=== PATIENT | female | born 1945 | race Caucasian/White ===

== ENCOUNTER 2017-04-12 00:13 | Observation (INO) ==
[2017-04-12] MEDS ORDERED: SALINE FLUSH 10ml SYRINGE IVF PRN (00:31)
--- OUTSIDE RECORDS SUMMARY | 2017-04-12 00:33 | External Medical Summary | Referral Summary ---
:1945 Author Organization [facility] Address [address] [place] [address] [place] [address] Care Team Providers Name Role Phone Jovanna Amaral Primary Care Physician Encounter [facility] Date(s): 09/29/15 - 09/29/15 [facility] [address] [place] [address] [place] [phone] [place] Discharge Diagnosis: Breast cancer Discharge Disposition: 01-Home or Self Care Attending Physician: Magdiel Neal MD Admitting Physician: Magdiel Neal MD Referring Physician: Jovanna Amaral MD Vital Signs Most recent to oldest [Reference Range]: 1 Temperature Tympanic [36.6-38.1 degC] 37.4 degC (09/29/15 4:40 PM) Blood Pressure [90-140/60-90 mmHg] 126/78 mmHg (09/29/15 4:40 PM) Problem List No data available for this section Allergies, Adverse Reactions, Alerts No Known Medication Allergies Medications Calcium 600+D oral tablet 1 tabs, Oral, BID, 0 Refill(s) Start Date: 09/29/15 Status: Ordered Results No data available for this section Immunizations No data available for this section Procedures Procedure Date Related Diagnosis Body Site Core needle biopsy of breast1 09/25/15 Hip replacement planned2 11/06/13 Colonoscopy 2004 1ultrasound guided, breast [id number] hip replacement Social History Social History Type Response Smoking Status Never smoker Assessment and Plan Extracted from: Title: Ambulatory Patient Education Author: Magdiel Neal MD Date: Family Medicine Breast Biopsy A breast biopsy is a procedure where a sample of breast tissue is removed from your breast. The tissue is examined under a microscope to see if cancerous cells are present. A breast biopsy is done when there is: Any undiagnosed breast mass (tumor). Nipple abnormalities, dimpling, crusting, or ulcerations. Abnormal discharge from the nipple, especially blood. Redness, swelling, and pain of the breast. Calcium deposits (calcifications) or abnormalities seen on a mammogram, ultrasound result, or results of magnetic resonance imaging (MRI). Suspicious changes in the breast seen on your mammogram. If the tumor is found to be cancerous (malignant), a breast biopsy can help to determine what the best treatment is for you. There are many different types of breast biopsies. Talk to your caregiver about your options and which type is best for you. LET YOUR CAREGIVER KNOW ABOUT: Allergies to food or medicine. Medicines taken, including vitamins, herbs, eyedrops, asjt-rpa-aspjddu medicines, and creams. Use of steroids (by mouth or creams). Previous problems with anesthetics or numbing medicines. History of bleeding problems or blood clots. Previous surgery. Other health problems, including diabetes and kidney problems. Any recent colds or infections. Possibility of , if this applies. RISKS AND COMPLICATIONS Bleeding. Infection. Allergy to medicines. Bruising and swelling of the breast. Alteration in the shape of the breast. Not finding the lump or abnormality. Needing more surgery. BEFORE THE PROCEDURE Arrange for someone to drive you home after the procedure. Do not smoke for 2 weeks before the procedure. Stop smoking, if you smoke. Do not drink alcohol for 24 hours before procedure. Wear a good support bra to the procedure. PROCEDURE You may be given a medicine to numb the breast area (local anesthesia) or a medicine to make you sleep (general anesthesia) during the procedure. The following are the different types of biopsies that can be performed. Fine-needle aspirationA thin needle is attached to a syringe and inserted into the breast lump. Fluid and cells are removed and then looked at under a microscope. If the breast lump cannot be felt, an ultrasound may be used to help locate the lump and place the needle in the correct area. Core needle biopsyA wide, hollow needle (core needle) is inserted into the breast lump 36 times to get tissue samples or cores. The samples are removed. The needle is usually placed in the correct area by using an ultrasound or X-ray. Stereotactic biopsyX-ray equipment and a computer are used to analyze X-ray pictures of the breast lump. The computer then finds exactly where the core needle needs to be inserted. Tissue samples are removed. Vacuum-assisted biopsyA small incision (less than inch) is made in your breast. A biopsy device that includes a hollow needle and vacuum is passed through the incision and into the breast t issue. The vacuum gently draws abnormal breast tissue into the needle to remove it. This type of biopsy removes a larger tissue sample than a regular core needle biopsy. No stitches are needed, and there is usually little scarring. Ultrasound-guided core needle biopsyA high frequency ultrasound helps guide the core needle to the area of the mass or abnormality. An incision is made to insert the needle. Tissue samples are removed. Open biopsyA larger incision is made in the breast. Your caregiver will attempt to remove the whole breast lump or as much as possible. AFTER THE PROCEDURE You will be taken to the recovery area. If you are doing well and have no problems, you will be allowed to go home. You may notice bruising on your breast. This is normal. Your caregiver may apply a pressure dressing on your breast for 2448 hours. A pressure dressing is a bandage that is wrapped tightly around the chest to stop fluid from collecting underneath tissues. This information is not intended to replace advice given to you by your health care provider. Make sure you discuss any questions you have with your health care provider. Document Released: 07/24/2006 Document Revised: 11/18/2013 Document Reviewed: 08/23/2012 [facility] Patient Information 2015 [employer]. Procedures Lumpectomy A lumpectomy is a form of "breast conserving" or "breast preservation" surgery. It may also be referred to as a partial mastectomy. During a lumpectomy , the portion of the breast that contains the cance jeannie tumor or breast mass (the lump) is removed. Some normal tissue around the lump may also be removed to make sure all of the tumor has been removed. LET YOUR HEALTH CARE PROVIDER KNOW ABOUT: Any allergies you have. All medicines you are taking, including vitamins, herbs, eye drops, creams, and yxco-ndw-rsxsuhz medicines. Previous problems you or members of your family have had with the use of anesthetics. Any blood disorders you have. Previous surgeries you have had. Medical conditions you have. RISKS AND COMPLICATIONS Generally, this is a safe procedure. However, problems can occur and include: Bleeding. Infection. Pain. Temporary swelling. Change in the shape of the breast, particularly if a large portion is removed. BEFORE THE PROCEDURE Ask your health care provider about changing or stopping your regular medicines. This is especially important if you are taking diabetes medicines or blood thinners. Do not eat or drink anything after midnight on the night before the procedure or as directed by your health care provider. Ask your health care provider if you can take a sip of water with any approved medicines. On the day of surgery, your health care provider will use a mammogram or ultrasound to locate and lanie the tumor in your breast. These markings on your breast will show where the cut (incision) will be made. PROCEDURE An IV tube will be put into one of your veins. You may be given medicine to help you relax before the surgery (sedative ). You will be given one of the following: A medicine that numbs the area (local anesthetic). A medicine that makes you fall asleep (general anesthetic). Your health care provider will use a kind of electric scalpel that uses heat to minimize bleeding (electrocautery knife). A curved incision (like a smile or frown) that follows the natural curve of your breast is made, to allow for minimal scarring and better healing. The tumor will be removed with some of the surrounding tissue. This will be sent to the lab for analysis. Your health care provider may also remove your lymph nodes at this time if needed. Sometimes, but not always, a rubber tube called a drain will be surgically inserted into your breast area or armpit to collect excess fluid that may accumulate in the space where the tumor was. T his drain is connected to a plastic bulb on the outside of your body. This drain creates suction to help remove the fluid. The incisions will be closed with stitches (sutures). A bandage may be placed over the incisions. AFTER THE PROCEDURE You will be taken to the recovery area. You will be given medicine for pain. A small rubber drain may be placed in the breast for 23 days to prevent a collection of blood (hematoma) from developing in the breast. You will be given instructions on caring for the drain before you go home. A pressure bandage (dressing) will be applied for 12 days to prevent bleeding. Ask your health care provider how to care for your bandage at home. This information is not intended to replace advice given to you by your health care provider. Make sure you discuss any questions you have with your health care provider. Document Released: 09/04/2007 Document Revised: 12/08/2014 Document Reviewed: 12/27/2013 [employer] Patient Information 2015 [employer]. No follow up information was provided. Extracted from: Title: Office Visit Note Author: Magdiel Neal MD Date: 09/29/15 Assessment/Plan 1.Breast cancer Ordered: Office Visit Level 4 New [address] Plan: Right Ultrasound Guided Needle Localized Lumpectomy, Right [place] Lymph Node Biopsy I did spend a fair amount of time reviewing the patient's chart including recent office note performed by her PCPfrom September 28, 2015. Reviewed lab for fromAuguary 2015 consisting of CBC CMPlab was found to be essentially within normal limits. Reviewed bilateral diagnostic mammogram fromFebruary 2015that revealed a 1.8 x 1.6 x 1.4 cmirregular density within the rig ht breastat the 1 o'clock position highly suggestive of malignancy. Reviewed right breast ultrasound also confirmed suspicious abnormalitypatient in 1.8 x 1.6 x 1.4 cmwithin the right breast. There wasalso a regionseen within the right breast at the 12 o'clock positionthat was hypoechoic with some posterior acoustic shadowing. Reviewed ultrasound guided biopsyperformed by radiology on September 25, 2015. Reviewed pathology reportrevealing that the biopsy performed at the 12 o'clock positionrevealed no evidence for malignancy. Unfortunately biopsy at the 1 o'clock position returnedrevealing that of an invasive poorly differentiated ductal carcinoma. Next I spent a fair amount of timediscussing the surgical managementof breast cancer. I informed the patient that resultsofher"biologic activity"of her breast cancerwere still pending. I.e. her ER, OK, and HER-2/jacobo status. I informed the patient that as a general rulea woman who is HER-2/jacobo posit jose and has a tumorgreater than 2 cm undergoneoadjuvanttreatment. Given the fact that her tumor was less than 2 cmIdo not feel thatwe have to await these results before proceeding with andrea gical intervention. Next I addressedher surgical optionsfor her newly diagnosedright breast cancerconsisting of that of alumpectomy followed by radiationversusthat of a mastectomy. I i nformed the patient that heroverall survivalis essentially the same whether or not she opts for that of a lumpectomy versus mastectomy. I informed the patient that in fact there are some newdata suggesting that perhapsthere is a slightsurvival benefit in womenwho undergolumpectomyversus that of mastectomy. NextI informed the patient thatin conjunction with excision of her breas t cancershe will alsoneed to have hernodal status evaluated via a sentinel lymph node biopsy. I informed the patient that if she has a mastectomyand her sentinel node is positive we would then need to proceed withan axillary dissection. If on the other hand she opts for lumpectomyand her sentinel node is positivean axillary dissection will not be required (accordingZ-11data) fo r she will likely require postoperative/adjuvant radiation therapy. After a moderate amount of discussionpatient concluded that she would like to proceed with breast conservation/right lumpectomy. Given the fact that this mass is somewhat subtle upon palpation it was my recommendation that we should proceedand a needle localizedlumpectomy fashion. I did discuss in detail with the patient w hat a rightneedle localizedlumpectomy, right sentinel lymph nodebiopsy entailedand its associated risk which included but was not inclusive of bleeding, infection, development of postoperative seroma, potential development of postoperativelymphedema,in potential injury to structures within theright axilla. Patient understood and was scheduled. Patient will need a EKG as a portion of her preoperative evaluation. We'll request that the patient return to her PCP to have this accomplished.
--- OUTSIDE RECORDS SUMMARY | 2017-04-12 00:33 | External Medical Summary ---
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 [address] 800 MG Orally PRN 1 tablet -00 Procedures Procedure Coding System Code Date EKG WITH INTERPRETAT CPT-4 21764 November 25, 2014 OFFICE VISITEST PT CPT-4 31251 November 25, 2014 CHEST XRAY 2 VIEW CPT-4 35571 November 25, 2014 Vital Signs Date/Time: November 25, 2014 Blood Pressure Systolic 156 mm Hg Height 64 in Weight 177 lbs BMI 30.38 Index Oximetry 97 % Cardiac Monitoring Heart Rate 85 /min Blood Pressure Diastolic 85 mm Hg Results No Known Results Summary Purpose [employer] Submission
--- OUTSIDE RECORDS SUMMARY | 2017-04-12 00:33 | External Medical Summary ---
:1945 Author Organization [employer] Care Team Providers Name Role Phone Bhargav Rodriguez Provider Role Unavailable Allergies No Known Allergies Problems Problem Type Condition Code Onset Dates [...] 724.3 Active Problem Sinusitis 473.9 Active Medications No Known Medications Procedures Procedure Coding System Code Date ECHOCARDIOGRAPHY, TRANSTHORACIC, REAL-TIME WITH CPT-4 66163 November 25, 2014 IMAGE DOCUMENTATION (2D), INCLUDES M-MODE RECORDING, WHEN PERFORMED, COMPLETE, WITH Results No Known Results Summary Purpose [facility] Submission
--- OUTSIDE RECORDS SUMMARY | 2017-04-12 00:33 | External Medical Summary ---
:1945 Author Organization [employer] Care Team Providers Name Role Phone Jaguar Cueto Provider Role Unavailable Allergies No Known Allergies Problems Problem Type Condition Code Onset Dates Condition Status Problem Inflamed seborrheic keratosis 702.11 Active Problem Wrist fracture 814.00 Active Problem Hip pain, left 719.45 Active Problem Abscess 682.9 Active Problem Pain in joint, other specified sites 719.48 Active Problem Primary localized osteoarthrosis, 715.16 Active lower leg Problem Sciatica of left side 724.3 Active Problem Sinusitis 473.9 Active Medications No Known Medications Results No Known Results Summary Purpose [employer] Submission
--- OUTSIDE RECORDS SUMMARY | 2017-04-12 00:33 | External Medical Summary ---
:1945 Author Organization [employer] Care Team Providers Name Role Phone Jaguar Cueto Provider Role Unavailable Allergies No Known Allergies Problems Problem Type Condition ICD-9 Code Onset Dates Condition Status Problem Inflamed seborrheic keratosis 702.11 Active Problem Wrist fracture 814.00 Active Problem Hip pain, left 719.45 Active Problem Abscess 682.9 Active Problem Pain in joint, other specified 719.48 Active sites Problem Primary localized 715.16 Active osteoarthrosis, lower leg Problem Sciatica of left side 724.3 Active Problem Sinusitis 473.9 Active Medications No Known Medications Results No Known Results Summary Purpose [employer] Submission
--- OUTSIDE RECORDS SUMMARY | 2017-04-12 00:33 | External Medical Summary | Referral Summary ---
:1945 Author Organization [facility] Address [address] [place] [address] [place] [address] Care Team Providers Name Role Phone Jovanna Amaral Primary Care Physician Encounter [facility] [id number] Date(s): 10/13/15 - 10/13/15 [facility] [address] [place] [address] [place] [phone] [place] Discharge Diagnosis: Breast cancer Discharge Diagnosis: Encounter for change or removal of drains Discharge Disposition: 01-Home or Self Care Attending Physician: Ama Bell APRN Admitting Physician: Ama Bell APRN Vital Signs Most recent to oldest [Reference Range]: 1 Temperature Tympanic [36.6-38.1 degC] 37.1 degC (10/13/15 9:31 AM) Problem List No data available for this section Allergies, Adverse Reactions, Alerts No Known Medication Allergies Medications Calcium 600+D oral tablet 1 tabs, Oral, BID, 0 Refill(s) Start Date: 09/29/15 Status: Ordered Results No data available for this section Immunizations No data available for this section Procedures Procedure Date Related Diagnosis Body Site Breast lumpectomy1 10/09/15 Core needle biopsy of breast2 09/25/15 Hip replacement planned3 11/06/13 Colonoscopy 2004 1right breast needle localized and sentinel lymph node biopsy, node negative for [id number] guided, breast [id number] hip replacement Social History Social History Type Response Smoking Status Never smoker Assessment and Plan Extracted from: Title: Office Visit Note Author: Ama Bell APRN Date: 10/13/15 Assessment/Plan 1.Breast cancer Pathology indicatesa right sentinel lymph nodewithout sign of metastasis. 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 No lymph/vascular invasion, necrosis or treatment effect identified. There was also some focal ductal carcinoma in situ, associated with invasive tumor, with solid and pa pillary architecture, no necrosis identified, intermediate nuclear grade. Dr. Yang always likes to see his cancer patients back at least once. Would like you to return to the clinicon October 15to see Dr. Yang. Be sure to keep the appointment with Dr. Membreno scheduled for October 29, 2015. Ordered: Postoperative Est 12594 2.Encounter for change or removal of drains Drain removed today without difficulty. You may shower in about 48 hours if thedrain hole has "scabbed over." Ordered: Postoperative Est [id number]
--- OUTSIDE RECORDS SUMMARY | 2017-04-12 00:33 | External Medical Summary | Referral Summary ---
:1945 Author Organization [facility] Address [address] [place] [address] [place] [address] Care Team Providers Name Role Phone Peytonalex Jovanna Yvonne Primary Care Physician Encounter [facility] Date(s): 10/16/15 - 10/16/15 [facility] [address] [place] [address] [place] [phone] [place] Discharge Diagnosis: Breast cancer Discharge Diagnosis: Post-operative state Discharge Disposition: 01-Home or Self Care Attending Physician: Magdiel Neal MD Admitting Physician: Magdiel Neal MD Vital Signs Most recent to oldest [Reference Range]: 1 Temperature Tympanic [36.6-38.1 degC] 37.4 degC (10/16/15 9:25 AM) Problem List No data available for [...] sentinel lymph node biopsy, node negative for [id number] guided, breast [id number] hip replacement Social History Social History Type [...] medicine. Medicines taken, including vitamins, herbs, eyedrops, txog-xbg-ygdtmva medicines, and creams. Use of steroids (by [...] 07/24/2006 Document Revised: 11/18/2013 Document Reviewed: 08/23/2012 [employer] Patient Information 2015 [employer]. No follow up information was provided. Extracted from: Title: Office Visit Note Author: Magdiel Neal MD Date: 10/16/15 Assessment/Plan 1.Breast cancer Ordered: Postoperative Est [id number] 2.Post-operative state Ordered: Postoperative Est [id number] Plan: Patient Set up to See Oncology/Dr. Membreno to Discuss Adjuvant Therapy. Patient at This Time to Follow-Up Me on When Necessary Basis. Return to PCP for Ongoing Medical Care. I did go over the patient's pathology with mikey revealed an invasive moderately poorly differentiated papillary carcinoma the breastthat was 2.1 cm in diameter. Anterior margin near sk in was close at less than a millimeter. Margins however were freeof tumor. [place] lymph node wasnegative with no evidence for macro metastasisnor micrometastasis. I informed the patient th atone of her surgical marginswas close at less than a millimeter. I informed the patient that new guidelines however statethatno tumor seen at each marginsis adequateand I did not feel saúl t reexcisionof her prior lumpectomy sitewas indicated. We will set the patient up to see Dr. Membreno/oncologyto discuss need for adjuvant therapy. Patient is to return to her PCP for her ongoin g medical care. Patient this time is to see me on when necessary basis..
--- NOTE | 2017-04-12 02:02 | Emergency Department Report ---
General Adult HPI - General Chief complaint: Back Pain/Injury Stated complaint: Back pain Time Seen by Provider: 04/12/17 00:27 Source: patient Mode of arrival: EMS Limitations: no limitations - History of Present Illness HPI narrative: 71-year-old female presents to the emergency department with a chief complaint of pain in her left scapular region radiating to her neck and L arm. Patient does note that she does have a history of musculoskeletal pain in the past in approximately the same area but notes today that the pain was more intense and slightly different in nature. Pain was sharp. Pain was moderate in nature. Pain radiated as indicated above. Patient called EMS due to the difference in her discomfort. She was given 324 mg of aspirin by mouth times one. Patient was given 2 sublingual nitroglycerin doses which markedly improved her discomfort. Patient denies any other complaints or associated symptoms. Symptoms began at approximately 10 PM yesterday evening. Symptoms have been persistent as indicated above. - Related Data Home Medications Medication Instructions Recorded Confirmed Anastrozole [Anastrozole] 1 mg PO DAILY 04/12/17 04/12/17 Calcium Carbonate/Vitamin D3 1 each PO BID 04/12/17 04/12/17 [Calcium 600 + Vit D Tablet] Allergies Allergy/AdvReac Type Severity Reaction Status Date / Time No Known Allergies Allergy Verified 04/12/17 03:28 Review of Systems Constitutional: Denies: fever, chills Eyes: Denies: eye pain, vision change ENT: Denies: ear pain, throat pain Cardiovascular: Denies: chest pain, palpitations Respiratory: Denies: cough, dyspnea Gastrointestinal: Denies: abdominal pain, nausea, vomiting, diarrhea Genitourinary: Denies: urgency, dysuria Musculoskeletal: Denies: back pain, arthralgia Integumentary: Denies: erythema, rash Neurological: Denies: headache, numbness Psychiatric: Denies: anxiety, depression Endocrine: Denies: fatigue, heat or cold intolerance Hematological/Lymphatic: Denies: easy bleeding, easy bruising Allergic/Immunologic: Denies: urticaria PFSH Patient Stated Medical History Cataracts Yes Osteoarthritis Yes: MILD IN FINGER ON LEFT HAND Other Musculoskeletal Yes: WRIST FX Post Menopausal Yes Clinic Medical History (Last Reviewed 03/20/17 @ 13:23 by Joel Hoffman MD) Breast cancer (Acute Medical) Cataract (Resolved Medical) Surgical History: Lumpectomy, cataract, Lt DAKOTAH Family History: Family History (Last Reviewed 03/20/17 @ 13:23 by Joel Hoffman MD) Father Diabetes Stroke Mother High cholesterol Stroke - Social History Smoking status: Never smoker Substance use type: does not use Alcohol intake frequency: does not drink Physical Exam - Limitations Limitations: no limitations - General General appearance: alert, in no apparent distress - Normal Exams: Head:: Normocephalic without trauma Eyes:: Pupils are PERRLA w/ EOMI, No scleral icterus, irritation, or foreign bodies noted ENMT:: No facial trauma, nasal exudates, pharyngeal erythema, or exudates are noted Dental: No fractured, loose, or missing teeth noted Neck:: Full range of motion, without adenopathy, JVD, bruits or thyromegaly Chest/Respirations:: Clear all palmer, with good airflow, and symmetry bilaterally Cardiovascular:: Regular rate and rhythm, without murmur or gallop, Pulses 2+ all extremities, capillary refill, <2 seconds all extremities Abdomen:: Bowel sounds positive, soft, non-tender, non-distended, no hepatosplenomegaly, masses or bruits noted Lymphatic:: No lymphadenopathy, or lymphedema noted Musculoskeletal:: No tenderness, or deformity noted, good range of motion, all extremities Integumentary:: No rashes, hives, or bruising noted, hair and nails, without abnormality Neurological:: Patient is alert, and oriented, cranial nerves, motor/sensory/ cerebellar, exams w/o gross deficits, to observation Psychiatric:: Patient exhibits, appropriate attention, emotion and affect Course Vital Signs Temperature 97.7 F 04/12/17 00:13 Pulse Rate 98 04/12/17 00:13 Respiratory Rate 20 04/12/17 00:13 Blood Pressure 157/70 H 04/12/17 00:13 Pulse Oximetry 97 04/12/17 00:13 Temperature 96.1 F L 04/12/17 04:21 Pulse Rate 76 04/12/17 04:21 Respiratory Rate 16 04/12/17 04:21 Blood Pressure 140/66 H 04/12/17 04:21 Pulse Oximetry 96 04/12/17 04:21 Medical Decision Making - MDM Narrative Medical decision making narrative: Labs / imaging were discussed in detail with the patient and family and questions are answered. Patient declines offered analgesic pain medication. Patient was given 324 mg of aspirin by mouth 1 by EMS. Patient was also given Phenergan due to nausea with her symptoms. Patient is discussed with Kesha from Dr. Paige's office who is the mid-level taking call for him and will be admitted to their service for further evaluation and treatment. No further orders from accepting physician who is in agreement with the current plan of management. Patient and family are in agreement with the current plan of management. Patient is admitted to the hospital in improved condition. CTA Chest declined by patient. - Differential Diagnosis ACS, musculoskeletal pain, muscle strain, metabolic disorder - Lab Data Result diagrams: 04/12/17 00:44 04/12/17 00:44 Lab Results 04/12/17 04/12/17 Range/Units 00:44 00:44 WBC 9.3 (4.5-11.0) T/MM3 RBC 3.91 L (4.00-5.20) M/MM3 Hgb 12.3 (12-16) GM/DL Hct 37.5 (36-46) % MCV 95.9 (80-100) UM3 MCH 31.5 (26-34) UUG MCHC 32.8 (31-37) GM/DL RDW Std Deviation 43.4 (36.9-50.2) FL Plt Count 179 (130-400) T/MM3 MPV 11.0 (9.4-12.4) UM3 Immature Gran % (Auto) 0.2 (0.0-0.5) % Neut % (Auto) 83.6 H (33-66) % Lymph % (Auto) 11.7 L (23-45) % [place] % (Auto) 3.0 (0-9.0) % Eos % (Auto) 1.1 (0-4) % Baso % (Auto) 0.4 (0-2) % Neut # 7.8 H (1.8-7.7) T/MM3 Lymph # 1.1 (1-4.8) T/MM3 [place] # 0.3 (0-0.8) T/MM3 Eos # 0.1 (0-0.5) T/MM3 Baso # 0.0 (0-0.2) T/MM3 Abs Immat Gran (auto) 0.02 (0.00-0.03) T/MM3 Turbidity < 20 (0-20) Sodium 142 (134-144) MEQ/L Potassium 4.6 (3.6-5) MEQ/L Chloride 103 (98-107) MEQ/L Carbon Dioxide 27 (22-30) MEQ/L Anion Gap 12 (5-15) MEQ/L BUN 24.0 H (7-17) MG/DL Creatinine 1.0 (0.7-1.2) MG/DL GFR Calculation 55 BUN/Creatinine Ratio 24 (6-26) RATIO Glucose 184 H (65-110) MG/DL Calculated Osmolality 282 H (261-280) MOSM/KG Calcium 10.2 (8.4-10.2) MG/DL Total Bilirubin 0.80 (0.20-1.30) MG/DL Icterus Index < 2 (0-7) AST 36 (14-36) U/L ALT 39 (9-52) U/L Alkaline Phosphatase 45 (38-126) U/L Troponin I < 0.012 (0-0.12) ng/ml Total Protein 8.1 (6.3-8.2) G/DL Albumin 4.4 (3.5-5.0) G/DL Globulin 3.7 H (2.4-3.6) G/DL Albumin/Globulin Ratio 1.2 (1.1-2.2) RATIO Specimen Hemolysis 83 H (0-25) - Radiology Data CXR - No acute processes. CTA Chest - Declined by patient. - EKG Data EKG #1 EKG results narrative: Sinus rhythm. 95 bpm. No STEMI. Questionable [id number] variability ST depression in V5/V6. EKG #2 EKG results narrative: Sinus rhythm. 89 bpm. No STEMI. Slight ST depression in V5/V6 again noted. Disposition Clinical Impression: Abnormal finding on EKG Left-sided thoracic back pain Qualifiers: Chronicity: acute Qualified Code(s): M54.6 - Pain in thoracic spine Disposition: 02 To [facility] Condition: Improved Time of Disposition: 02:30 (Admit. Dr. Paige. ) - Seen By: physician
[2017-04-12 04:40] VITALS: BMI 30.4
[2017-04-12 04:53] VITALS: RESP 16; TEMP 96.1
[2017-04-12] MEDS ORDERED: ACETAMINOPHEN 325 MG TABLET PO PRN (06:33)
[2017-04-12] MEDS ORDERED: NAPROXEN 220 MG TABLET PO PRN (06:33)
[2017-04-12] MEDS: ASPIRIN 81 MG CHEWABLE TABLET PO SCH ×2 (06:54→08:41)
[2017-04-12 07:44] VITALS: BP 137/69; O2SAT 98
--- NOTE | 2017-04-12 08:02 | XRay Report ---
Indication: Pain PROCEDURE: XR chest 1V: Encounter: Initial Comparison: None FINDINGS: The lungs are clear. There is no abnormal airspace opacity, pleural effusion or pneumothorax identified. The heart size, pulmonary vasculature and mediastinum are within normal limits. No significant skeletal abnormality is seen. IMPRESSION: No acute cardiopulmonary abnormality. .
--- NOTE | 2017-04-12 11:51 | Cardiology History & Physical ---
History of Present Illness Chief complaint: chest pain HPI: Lake is a 71-year-old female who presented to the ED with pain in her left scapular region radiating to her neck and L arm. She reported that she does have a history of musculoskeletal pain in the past in approximately the same area but notes today that the pain was more intense and slightly different in nature. She described the pain as sharp and moderate in nature. She was given 2 sublingual nitroglycerin doses which markedly improved her discomfort. She had been previously vomiting and c/o headache. Symptoms began at approximately 10 PM yesterday evening. She denies dyspnea or cool sweats. This morning she states she has a dull ache in her scapula which is about her usual, and a headache. She denies chest pain, pressure, or tightness. Review of Systems - Constitutional Constitutional: Absent: chills, fever(s) - EENMT Eyes: Absent: change in vision Balance: Absent: vertigo Mouth/Throat: Absent: sore throat - Cardiovascular Cardiovascular: Present: chest pain. Absent: palpitations, syncope, dyspnea on exertion, orthopnea Vascular: Absent: pedal edema - Respiratory Respiratory: Absent: cough, dyspnea, dyspnea on exertion - Gastrointestinal Gastrointestinal: Present: vomiting. Absent: diarrhea - Genitourinary Genitourinary: Absent: dysuria - Musculoskeletal Musculoskeletal: Present: back pain, neck pain - Integumentary/Breasts Integumentary: Absent: rash - Neurological Neurological: Absent: dizziness - Endocrine Endocrine: Absent: palpitations PFSH Patient Stated Medical History Cataracts Yes Osteoarthritis Yes: MILD IN FINGER ON LEFT HAND Other Musculoskeletal Yes: WRIST FX Post Menopausal Yes Clinic Medical History (Last Reviewed 03/20/17 @ 13:23 by Joel Hoffman MD) Breast cancer (Acute Medical) Cataract (Resolved Medical) Surgical History: Lumpectomy, cataract, Lt DAKOTAH Family History: Family History (Last Reviewed 03/20/17 @ 13:23 by Joel Hoffman MD) Father Diabetes Stroke Mother High cholesterol Stroke - Social History Smoking status: Never smoker Substance use type: does not use Alcohol intake frequency: does not drink Household members: none Current residence: Apartment/Private Home Medications Home Medications Medication Instructions Recorded Confirmed Type Anastrozole 1 mg PO DAILY 04/12/17 04/12/17 History Calcium Carbonate/Vitamin D3 1 each PO BID 04/12/17 04/12/17 History [Calcium 600 + Vit D Tablet] Allergies Allergy/AdvReac Type Severity Reaction Status Date / Time No Known Allergies Allergy Verified 04/12/17 03:28 Exam Vital signs: Temperature 96.1 F L 04/12/17 07:44 Pulse Rate 75 04/12/17 08:24 Respiratory Rate 16 04/12/17 07:44 Blood Pressure 137/69 04/12/17 07:44 Pulse Oximetry 98 04/12/17 07:44 - Constitutional no acute distress, well nourished, well developed, cooperative - Routine HEENT Exam Head: Present: normocephalic ENT: Present: mucous membranes moist - Routine Neck Exam Present: carotid bruit (right). Absent: JVD - Routine Chest/Breast/Axilla Exam Chest wall: Absent: tenderness - Routine Respiratory Exam Present: CTA bilaterally. Absent: rales, wheezes - Routine Cardiovascular Exam Present: RRR, no murmur. Absent: JVD - Routine Abdominal Exam Present: soft, normoactive bowel sounds - Routine Extremities Exam Present: no edema - Routine Skin Exam Present: intact, dry, warm - Routine Neurological Exam Present: alert, oriented X3 - Routine Psychiatric Exam Present: normal affect, normal thought process Results 04/12/17 00:44 04/12/17 00:44 Cardiac Enzymes 04/12/17 Range/Units 06:52 Troponin I < 0.012 (0-0.12) ng/ml Intake and Output 04/11/17 04/12/17 04/12/17 22:59 06:59 14:59 Other: # Voids 1 Weight 171 lb 15.369 oz 172 lb 6.424 oz Patient Weight 04/13/17 06:59 Weight 172 lb 6.424 oz Laboratory Results - last 48 hr 04/12/17 04/12/17 04/12/17 00:44 00:44 06:52 WBC 9.3 RBC 3.91 L Hgb 12.3 Hct 37.5 MCV 95.9 MCH 31.5 MCHC 32.8 RDW Std Deviation 43.4 Plt Count 179 MPV 11.0 Immature Gran % (Auto) 0.2 Neut % (Auto) 83.6 H Lymph % (Auto) 11.7 L [place] % (Auto) 3.0 Eos % (Auto) 1.1 Baso % (Auto) 0.4 Neut # 7.8 H Lymph # 1.1 [place] # 0.3 Eos # 0.1 Baso # 0.0 Abs Immat Gran (auto) 0.02 Turbidity < 20 Sodium 142 Potassium 4.6 Chloride 103 Carbon Dioxide 27 Anion Gap 12 BUN 24.0 H Creatinine 1.0 GFR Calculation 55 BUN/Creatinine Ratio 24 Glucose 184 H Calculated Osmolality 282 H Calcium 10.2 Magnesium 2.1 Total Bilirubin 0.80 Icterus Index < 2 AST 36 ALT 39 Alkaline Phosphatase 45 Troponin I < 0.012 < 0.012 Total Protein 8.1 Albumin 4.4 Globulin 3.7 H Albumin/Globulin Ratio 1.2 TSH 2.53 Specimen Hemolysis 83 H < 15 - Imaging and Cardiology Echo: pending EKG results: image reviewed Imaging & Cardiology Narrative: Date of Exam: 04/12/17 Ordering Provider: Tatiana Khalil APRN Type of Exam(s): US carotid doppler BI Reason for Exam(s): right bruit Indication: right bruit PROCEDURE: US carotid doppler BI: TECHNIQUE: Grayscale, color and duplex Doppler imaging was performed of the carotid systems bilaterally. Velocities in cm/sec - validated velocity measurements with angiographic measurements, velocity criteria are extrapolated from diameter data as defined by the Society of Radiologists in Ultrasound Consensus Conference Radiology 2003; 229;340-346. RIGHT: PSV ICA 134 EDV ICA 45.5 PSV CCA 104 EDV CCA 27.5 SVR 1.3 PSV ECA 112 ICA Diameter reduction 20%-40% (1.2-1.4 [id number])% LEFT: PSV ICA 119 EDV ICA 38.7 PSV CCA 119 EDV CCA 35.4 SVR 1.0 PSV ECA 129 ICA Diameter reduction 20%-40% (1.2-1.4 [id number])% The right vertebral artery is patent with cephalic flow. The left vertebral artery is patent with cephalic flow. Minimal plaque in the carotid bulbs. IMPRESSION: Minimal velocity elevation in the right distal ICA is felt to be due to vessel tortuosity rather than luminal stenosis. No hemodynamically significant carotid stenosis. Date of Exam: 04/12/17 Ordering Provider: Abdullahi Morrell DO Type of Exam(s): XR chest 1V Reason for Exam(s): Pain Indication: Pain PROCEDURE: XR chest 1V: Encounter: Initial Comparison: None FINDINGS: The lungs are clear. There is no abnormal airspace opacity, pleural effusion or pneumothorax identified. The heart size, pulmonary vasculature and mediastinum are within normal limits. No significant skeletal abnormality is seen. IMPRESSION: No acute cardiopulmonary abnormality. EKG interpretations - EKG EKG results cardiology: sinus rhythm - Blocks, axis, hypertrophy, ST abn Repolarization changes or abnormalities: nonspecific abnormality, ST segment, and/or T wave Hospital Course This is a general summary of the patient's hospital course. For more details refer to the complete medical record. Time spent with patient: 25 - 35 minutes Assessment and Plan (1) Left-sided thoracic back pain Status: Acute Trend serial troponin levels (all negative) EKG with nonspecific ST-T wave changes Follow up for outpatient stress test (2) Right carotid bruit Status: Acute Minimal velocity elevation in the right distal ICA is felt to be due to vessel tortuosity rather than luminal stenosis. No hemodynamically significant carotid stenosis. - Attestation Attestation Narrative: 04/13/17 16:35 Recommendation After examining the patient I agree with the above assessment. I am involved in the formulation of the patient's plan of care. Sepsis Assessment - Evaluation Sepsis screening result: No Definite Risk
--- NOTE | 2017-04-12 12:19 | Ultrasound Report ---
Indication: right bruit PROCEDURE: US carotid doppler BI: TECHNIQUE: Grayscale, color and duplex Doppler imaging was performed of the carotid systems bilaterally. Velocities in cm/sec - validated velocity measurements with angiographic measurements, velocity criteria are extrapolated from diameter data as defined by the Society of Radiologists in Ultrasound Consensus Conference Radiology 2003; 229;340-346. RIGHT: PSV ICA 134 EDV ICA 45.5 PSV CCA 104 EDV CCA 27.5 SVR 1.3 PSV ECA 112 ICA Diameter reduction 20%-40% (1.2-1.4 [id number])% LEFT: PSV ICA 119 EDV ICA 38.7 PSV CCA 119 EDV CCA 35.4 SVR 1.0 PSV ECA 129 ICA Diameter reduction 20%-40% (1.2-1.4 [id number])% The right vertebral artery is patent with cephalic flow. The left vertebral artery is patent with cephalic flow. Minimal plaque in the carotid bulbs. IMPRESSION: Minimal velocity elevation in the right distal ICA is felt to be due to vessel tortuosity rather than luminal stenosis. No hemodynamically significant carotid stenosis. .
--- NOTE | 2017-04-12 14:05 | Discharge Summary ---
<Tatiana Khalil - Last Filed: 04/12/17 14:02> Discharge Information Date of admission: 04/12/17 04:12 Anticipated date of discharge: 04/12/17 Attending Physician: John Paige MD Primary care physician: Jovanna Amaral MD - Radiology Radiology: Date of Exam: 04/12/17 Ordering Provider: Tatiana Khalil APRN Type of Exam(s): US carotid doppler BI Reason for Exam(s): right bruit Indication: right bruit PROCEDURE: US carotid doppler BI: TECHNIQUE: Grayscale, color and duplex Doppler imaging was performed of the carotid systems bilaterally. Velocities in cm/sec - validated velocity measurements with angiographic measurements, velocity criteria are extrapolated from diameter data as defined by the Society of Radiologists in Ultrasound Consensus Conference Radiology 2003; 229;340-346. RIGHT: PSV ICA 134 EDV ICA 45.5 PSV CCA 104 EDV CCA 27.5 SVR 1.3 PSV ECA 112 ICA Diameter reduction 20%-40% (1.2-1.4 [id number])% LEFT: PSV ICA 119 EDV ICA 38.7 PSV CCA 119 EDV CCA 35.4 SVR 1.0 PSV ECA 129 ICA Diameter reduction 20%-40% (1.2-1.4 [id number])% The right vertebral artery is patent with cephalic flow. The left vertebral artery is patent with cephalic flow. Minimal plaque in the carotid bulbs. IMPRESSION: Minimal velocity elevation in the right distal ICA is felt to be due to vessel tortuosity rather than luminal stenosis. No hemodynamically significant carotid stenosis. History of Present Illness HPI: Lake is a 71-year-old female who presented to the ED with pain in her left scapular region radiating to her neck and L arm. She reported that she does have a history of musculoskeletal pain in the past in approximately the same area but notes today that the pain was more intense and slightly different in nature. She described the pain as sharp and moderate in nature. She was given 2 sublingual nitroglycerin doses which markedly improved her discomfort. She had been previously vomiting and c/o headache. Symptoms began at approximately 10 PM yesterday evening. She denies dyspnea or cool sweats. This morning she states she has a dull ache in her scapula which is about her usual, and a headache. She denies chest pain, pressure, or tightness. Hospital Course This is a general summary of the patient's hospital course. For more details refer to the complete medical record. Hospital course: (1) Left-sided thoracic back pain Current visit: Yes Status: Acute Trend serial troponin levels (all negative) EKG with nonspecific ST-T wave changes Follow up for outpatient stress test (2) Right carotid bruit Current visit: Yes Status: Acute Minimal velocity elevation in the right distal ICA is felt to be due to vessel tortuosity rather than luminal stenosis. No hemodynamically significant carotid stenosis. Time spent with patient: 25 - 35 minutes DVT Prophylaxis: Lovenox Exam Vital signs: Temperature 96.1 F L 04/12/17 07:44 Pulse Rate 75 04/12/17 08:24 Respiratory Rate 16 04/12/17 07:44 Blood Pressure 137/69 04/12/17 07:44 Pulse Oximetry 98 04/12/17 07:44 - Constitutional no acute distress, well nourished, cooperative - Routine HEENT Exam Head: Present: normocephalic ENT: Present: mucous membranes moist - Routine Neck Exam Present: carotid bruit (right). Absent: JVD - Routine Chest/Breast/Axilla Exam Chest wall: Absent: tenderness - Routine Respiratory Exam Present: CTA bilaterally. Absent: rales, wheezes - Routine Cardiovascular Exam Present: RRR, no murmur. Absent: JVD - Routine Abdominal Exam Present: soft, normoactive bowel sounds - Routine Extremities Exam Present: no edema - Routine Skin Exam Present: intact, dry, warm - Routine Neurological Exam Present: alert, oriented X3 - Routine Psychiatric Exam Present: normal affect, normal thought process Results 04/12/17 00:44 04/12/17 00:44 Cardiac Enzymes 04/12/17 04/12/17 Range/Units 06:52 13:13 Troponin I < 0.012 0.013 (0-0.12) ng/ml Intake and Output 04/11/17 04/12/17 04/12/17 22:59 06:59 14:59 Other: # Voids 1 Weight 171 lb 15.369 oz 172 lb 6.424 oz Patient Weight 04/13/17 06:59 Weight 172 lb 6.424 oz Laboratory Results - last 48 hr 04/12/17 04/12/1704/12/17 00:44 00:44 06:52 WBC 9.3 RBC 3.91 L Hgb 12.3 Hct 37.5 MCV 95.9 MCH 31.5 MCHC 32.8 RDW Std Deviation 43.4 Plt Count 179 MPV 11.0 Immature Gran % (Auto) 0.2 Neut % (Auto) 83.6 H Lymph % (Auto) 11.7 L [place] % (Auto) 3.0 Eos % (Auto) 1.1 Baso % (Auto) 0.4 Neut # 7.8 H Lymph # 1.1 [place] # 0.3 Eos # 0.1 Baso # 0.0 Abs Immat Gran (auto) 0.02 Turbidity < 20 Sodium 142 Potassium 4.6 Chloride 103 Carbon Dioxide 27 Anion Gap 12 BUN 24.0 H Creatinine 1.0 GFR Calculation 55 BUN/Creatinine Ratio 24 Glucose 184 H Calculated Osmolality 282 H Calcium 10.2 Magnesium 2.1 Total Bilirubin 0.80 Icterus Index < 2 AST 36 ALT 39 Alkaline Phosphatase 45 Troponin I < 0.012 < 0.012 Total Protein 8.1 Albumin 4.4 Globulin 3.7 H Albumin/Globulin Ratio 1.2 TSH 2.53 Specimen Hemolysis 83 H < 15 04/12/17 13:13 WBC RBC Hgb Hct MCV MCH MCHC RDW Std Deviation Plt Count MPV Immature Gran % (Auto) Neut % (Auto) Lymph % (Auto) [place] % (Auto) Eos % (Auto) Baso % (Auto) Neut # Lymph # [place] # Eos # Baso # Abs Immat Gran (auto) Turbidity Sodium Potassium Chloride Carbon Dioxide Anion Gap BUN Creatinine GFR Calculation BUN/Creatinine Ratio Glucose Calculated Osmolality Calcium Magnesium Total Bilirubin Icterus Index AST ALT Alkaline Phosphatase Troponin I 0.013 Total Protein Albumin Globulin Albumin/Globulin Ratio TSH Specimen Hemolysis 65 H - Imaging and Cardiology Echo: pending EKG results: image reviewed - EKG Interpretation EKG: sinus rhythm (nonspecific ST-T changes) Discharge Plan - Med Rec/Dispo Referrals/Follow Up: John Paige MD [Physician] - 04/27/17 10:00 am Shayna Instructions: Chest Pain (GEN) Prescriptions: Continue Calcium Carbonate/Vitamin D3 [Calcium 600 + Vit D Tablet] 1 each PO BID Anastrozole 1 mg PO DAILY - Disposition 01 Discharged Home, Self-Care <John Paige - Last Filed: 04/13/17 16:38> Discharge Information Date of admission: 04/12/17 04:12 Attending Physician: John Paige MD Primary care physician: Jovanna Amaral MD Hospital Course This is a general summary of the patient's hospital course. For more details refer to the complete medical record. Exam Vital signs: Temperature 96.1 F L 04/12/17 07:44 Pulse Rate 84 04/12/17 14:08 Respiratory Rate 16 04/12/17 07:44 Blood Pressure 137/69 04/12/17 07:44 Pulse Oximetry 98 04/12/17 07:44 Results 04/12/17 00:44 04/12/17 00:44 Discharge Plan - Med Rec/Dispo - Attestation Attestation Narrative: 04/13/17 16:38 Recommendation After examining the patient I agree with the above assessment. I am involved in the formulation of the patient's plan of care.
[2017-04-12 14:57] VITALS: PULSE 84
--- NOTE | 2017-04-12 15:58 | Echocardiogram ---
DATE OF PROCEDURE April 12, 2017 This is a two-dimensional echo with spectral Doppler, color-flow and M-mode. It was obtained in a patient with chest pain. Left atrial dimension is normal. Left ventricular end-diastolic dimension is normal. Left ventricular wall thickness is normal. LV systolic function is normal with ejection fraction of 65%. Right atrium is normal. Right ventricle is normal. Aortic root dimension is normal. Mitral, aortic, tricuspid, and pulmonary valves are morphologically normal with mild tricuspid regurgitation with normal estimated pulmonary artery systolic pressure of 24. There is no pericardial effusion. IMPRESSION 1. Normal LV systolic function with ejection fraction of about 65%. 2. Mild tricuspid regurgitation with normal estimated pulmonary artery systolic pressure of 24. MTDD
== END 2017-04-12 14:50 | disposition home or self-care (01) ==
LOC: ED 00:13 → SRG 00:13
PROVIDERS: ADMIT Internal Medicine Cardiovascular Disease; ATTEND Internal Medicine Cardiovascular Disease